=== PATIENT | female | born 1980 | race Two or more races ===

== ENCOUNTER → 2025-05-22 | Outpatient (CLI) | payer OTHER, SELFPAY ==
--- NOTE | 2025-05-22 14:57 | XR_ITS ---
Examination: Duplex scan of the lower extremity, unilateral right Date and time of exam: May 22, 2025 1513 hours INDICATIONS: Right calf pain and swelling beginning 5 days ago Technique: Duplex scan of the extremity veins using B-mode/grayscale imaging and Doppler spectral analysis and color flow Attention is directed to internal echogenicity, compression and augmentation involving these veins, color flow assessment, spectral analysis Findings: Major deep venous structures in the extremity demonstrate normal course and caliber. There is no evidence of deep vein thrombosis. Normal color flow and spectral analysis Impression: Negative for DVT..
--- NOTE | 2025-05-22 15:13 | XR_ITS ---
Examination: Foot, right, 3 views Technique: AP, oblique, lateral views foot, 3 views Date and time of exam: May 22, 2025 1521 hours INDICATIONS: Numbness and paresthesias in the right foot beginning 4 days ago. FINDINGS: Moderate osteopenia. No fracture or dislocation. No erosive or other significant arthritic change IMPRESSION: No erosive or other significant arthritic change
== END | disposition home or self-care (01) ==
PROVIDERS: PCP Nurse Practitioner; Referring Provider Nurse Practitioner; Visit Provider Nurse Practitioner
DX: M79.661 Pain in right lower leg (principal); M79.671 Pain in right foot
CPT/HCPCS: 73630; 93971